=== PATIENT | female | born 1960 | race African-American/Black ===

== ENCOUNTER 2016-12-27 05:39 | Day surgery (SDC) | payer OTHER ==
[2016-12-24 09:54] VITALS: BMI 34.9
--- NOTE | 2016-12-26 23:17 | PREOPHP ---
DATE OF ADMISSION: 12/27/2016 This patient is coming for a procedure on 12/27/2016. HISTORY OF PRESENT ILLNESS: This is a 56-year-old female, 2, para 1. This patient had seen me due to an abnormal Pap smear that has continuously been abnormal, with the need for a colposcopy. The last Pap smear showed ASCUS, atypical squamous cells of undetermined origin and HPV-positive. This patient had been scheduled for a D and C due to endometrial hyperplasia. This patient has suffered from diabetes and hypertension. She has been uncontrolled. The fact that the ultrasound showed endometrial hyperplasia is advising me to perform a D and C. The endometrium was with no endometrial fluid. Both ovaries were not seen due to gas, and the uterus was heterogeneous, with no measurable fibroids. She also had a mild infiltration of the liver with fat. She was diagnosed with an endometrial polyp, and for this reason, she is undergoing a D and C and LEEP conization. This patient has a history of being afraid of procedures, and a LEEP conization is going to be performed since the need of a D and C was present, due to postmenopausal bleeding and severe cervical inflammation. PAST MEDICAL HISTORY: For tubal ligation, history of asthma, diabetes, uncontrolled hypertension. ALLERGIES: SHE IS ALLERGIC TO CODEINE. SHE HAS NO OTHER PERTINENT HISTORY. MEDICATIONS: She is on: 1. Ibuprofen. 2. High blood pressure medication. 3. Dulera. 4. Albuterol. 5. Hydrochlorothiazide. 6. Atorvastatin. 7. Ventolin. 8. Sertraline. 9. . 10. Fluticasone. The patient also has been diagnosed as being bipolar. PHYSICAL EXAMINATION: VITAL SIGNS: She weighs 214. She is 5 feet, 5 inches. Blood pressure is 120/80, pulse is 80. HEAD/NECK: Normal. BREASTS: Soft, nontender, no masses. CHEST: Clear. HEART: Normal sinus rhythm. LUNGS: Normal. ABDOMEN: Soft, nontender, no masses. GENITALIA: Normal external genitalia. Cervix with cervicitis. Uterus normal size, mobile. Adnexa negative. RECTAL EXAMINATION: Normal. EXTREMITIES: Normal. DIAGNOSES: 1. Atypical squamous cells of undetermined significance, nonsatisfactory colposcopy, due to severe inflammation and due to scar tissue on the cervix, with poor visualization of the transformation zone. She is undergoing a LEEP conization and a dilatation and curettage. 2. She also has diagnoses of diabetes, hypertension, asthma, chronic smoking and bipolar disease. PLAN: She has been advised of the possible risks and possible complications of the procedure with her alternatives and options. Written information was provided. She had no more questions and agreed to go ahead with the procedure, with full understanding and no more questions, the procedure to be D and C and LEEP conization. Dictated By: Mary Madison MD /philipp/deepak /Document#: [id number]
[~2016-12-27] VITALS: Ht 165.1 cm; Wt 93.2 kg
[2016-12-27] VITALS (12 sets, daily range): BP systolic 109–165; BP diastolic 70–105; PULSE 70–88; RESP 15–28; Ht 165.1 cm; Wt 93.2 kg
[~2016-12-27 05:39] MED LIST: AMLO-147 PO; ATOR40TA68 PO; ERGO500014 PO; FLUT16SP17 NASAL; HYDR12.58 PO; LOSA25TA5 PO; NICO1PAT6 TD; PANT40TA3 PO; SYMB80120 INHALATION
[2016-12-27] MEDS ORDERED: CEFAZOLIN 2 GM/50 ML (PMX) 50 ML IVPB ONE (06:00)
[2016-12-27] MEDS ORDERED: [UNRECOGNIZED DRUG - OTHER] PO (06:52)
[2016-12-27] MEDS ORDERED: LURA60TA PO (06:52)
[2016-12-27] MEDS ORDERED: MOME13HF INHALATION (06:52)
[2016-12-27] MEDS ORDERED: ALBU2.5V3 NEB (06:52)
[2016-12-27] MEDS ORDERED: ALBU18HF INHALATION (06:52)
[2016-12-27] MEDS ORDERED: STRONG IODINE 14 ML SOLUTION TOP ONE (07:26)
[2016-12-27] MEDS ORDERED: LIDOCAINE 2% (SDV) 5 ML INJ ONE (07:54)
[2016-12-27] MEDS ORDERED: PROPOFOL 20 ML ONE (07:54)
[2016-12-27] MEDS ORDERED: FAMOTIDINE 20 MG INJ ONE (07:55)
[2016-12-27] MEDS ORDERED: ONDANSETRON 4 MG INJ ONE ×2 (07:55→09:06)
[2016-12-27] MEDS ORDERED: MIDAZOLAM 1 MG/ML 2 ML INJ ONE (07:55)
[2016-12-27] MEDS ORDERED: FENTAnyl 50 MCG/ML VIAL ONE (07:57)
[2016-12-27] MEDS ORDERED: CEFAZOLIN 1 GM INJ ONE (08:14)
--- NOTE | 2016-12-27 08:44 | HPN ---
Date/Time of Note Date/Time of Note DATE: 12/27/16 TIME: 08:43 Interval H&P Admission Note Pt. seen H&P reviewed: No system changes ERVIN SKAGGS MD Dec 27, 2016 08:44
--- NOTE | 2016-12-27 08:45 | PD.PPDC ---
OCEANIC SCIENCES PROFESSOR Discharge Instruction Condition Patient Condition: Good Diet Diet: Resume Regular Diet Activity/Restrictions Activity: Normal Activity May Shower Restrictions: No Exercising No Lifting No Driving No Sexual Activity Nothing in the Vagina No [place] No Tampons, douche Follow-up Follow-up with Physician: 2, Week/Weeks Return to clinic for REHABILITATION COUNSELLOR Instructions: Fever greater than 101 Chills Worsening abdominal pain Excessive Vaginal Bleeding More than 2 pads per hour Unable to tolerate diet ERVIN SKAGGS MD Dec 27, 2016 08:45
--- NOTE | 2016-12-27 08:52 | OPR ---
Date/Time of Note Date/Time of Note DATE: 12/27/16 TIME: 08:48 Operative Report Procedure Date: Dec 27, 2016 Preoperative Diagnosis ASCUS ABNORMAL PAP SMEAR NON SATISFACTORY COLPOSCOPY DIABETES HTN ASTHMA POSTMENOPAUSAL BLEEDING Postoperative Diagnosis SAME Operation Performed CERVICAL LEEP PROCEDURE FRACTIONAL D&C Surgeon: ERVIN SKAGGS MD Anesthesia Type: general Anesthesiologist: TATYANA MAGDALENO MD Estimated Blood Loss: none Transfusion Required: no Specimens ENDOMETRIAL CONTENTS CERVICAL ECTO AND ENDOCERVICAL BIOPSIES Grafts/Implants: none Complications: no Pt Condition Post Procedure: stable Disposition: PACU ERVIN SKGAGS MD Dec 27, 2016 08:52
[2016-12-27] MEDS ORDERED: OXYCODONE/ACETAMINOPHEN (5/325) TAB PO PRN ×2 (09:00)
[2016-12-27] MEDS ORDERED: MEPERIDINE 25 MG INJ IV PRN (09:00)
[2016-12-27] MEDS ORDERED: DIPHENHYDRAMINE 50 MG INJ IV PRN (09:00)
[2016-12-27] MEDS ORDERED: PROCHLORPERAZINE 10 MG INJ IV PRN (09:00)
[2016-12-27] MEDS ORDERED: hydrALAzine 20 MG INJ IV PRN (09:00)
[2016-12-27] MEDS ORDERED: LABETALOL HCL 20MG INJ IV PRN (09:00)
[2016-12-27] MEDS ORDERED: KETOROLAC 30 MG INJ IV PRN (09:00)
[2016-12-27] MEDS ORDERED: ONDANSETRON 4 MG INJ IV PRN (09:00)
[2016-12-27] MEDS ORDERED: HYDROmorphONE (0.2 MG/ML) 10ML SYG IV PRN (09:00)
[2016-12-27] MEDS ORDERED: MEPERIDINE 25 MG INJ ONE (09:06)
[2016-12-27] MEDS: FENTAnyl 50 MCG/ML VIAL IV PRN ×2 (09:18→09:23)
--- NOTE | 2016-12-27 15:39 | OPR ---
DATE OF OPERATION: 12/27/2016 PROCEDURE: Fractional D and C, and LEEP conization of the cervix. PREOPERATIVE DIAGNOSES: 1. Nonsatisfactory colposcopy, atypical squamous cells of undetermined significance, human papilloma virus positive. 2. Diabetes. 3. Hypertension. 4. Asthma. 5. Postmenopausal bleeding. POSTOPERATIVE DIAGNOSES: 1. Nonsatisfactory colposcopy, atypical squamous cells of undetermined significance, human papilloma virus positive. 2. Diabetes. 3. Hypertension. 4. Asthma. 5. Postmenopausal bleeding. SURGEON: Mary Madison MD ANESTHESIA: Dr. with general anesthesia. OPERATIVE PROCEDURE: The patient was given general anesthesia, placed in the lithotomy position. The perineal area was prepped and draped, and the vaginal speculum was placed. Examination under anesthesia revealed that the uterus was small, normal size. There was marked prolapse of the uterus through the cervix, to be very close to the introitus at plus 3 station. The bladder was also protruding down with a prolapse of the bladder to a grade 3. The vaginal speculum was applied. Lugol solution was applied on the cervix and ectocervix, and endocervical conization was done with a large and small electrical loop, and the hemostasis was perfect. At this time, there has been an ECC done previously, and an EMC was provided by scraping the layers of the uterus anteriorly, posteriorly and laterally and in the fundus. The patient tolerated the procedure well, and left the OR awake and stable. Sponge counts and instrument counts were correct. Intravenous antibiotics were given for prophylaxis. Dictated By: Mary Madison MD /fnt/ec /Document#: [id number]
== END 2016-12-27 10:28 | disposition home or self-care (01) ==
LOC: SDS 05:39
PROVIDERS: ATTEND Obstetrics & Gynecology
DX: N88.8 Other specified noninflammatory disorders of cervix uteri (principal); N71.9 Inflammatory disease of uterus, unspecified; E11.9 Type 2 diabetes mellitus without complications; I10 Essential (primary) hypertension; J45.909 Unspecified asthma, uncomplicated
CPT/HCPCS: 57522; 82962; 88305; J0690; J2175; J2250; J2405; J3010; Z7512; Z7610

== ENCOUNTER 2017-02-28 05:56 | Inpatient (IN) | payer OTHER ==
[2017-02-25 10:38] VITALS: Ht 165.1 cm; Wt 95.5 kg
[~2017-02-28] VITALS: Ht 165.1 cm; Wt 95.5 kg
[2017-02-28] VITALS (13 sets, daily range): BP systolic 98–131; BP diastolic 54–83; PULSE 60–92; RESP 14–44
[~2017-02-28 05:56] MED LIST changes: +ALBU18HF INHALATION; +ALBU2.5V3 NEB; -ERGO500014 PO; +LURA60TA PO; +MOME13HF INHALATION; -NICO1PAT6 TD; -PANT40TA3 PO; -SYMB80120 INHALATION; +[UNRECOGNIZED DRUG - OTHER] PO
[2017-02-28] MEDS ORDERED: BUPIVACAINE 0.5%/EPI (SDV) 30 ML INJ ONE (07:00)
[2017-02-28] MEDS ORDERED: CEFAZOLIN 2 GM/50 ML (PMX) 50 ML IVPB ONE (07:00)
[2017-02-28] MEDS ORDERED: ETOMIDATE 20 MG INJ ONE (07:00)
[2017-02-28] MEDS ORDERED: THROMBIN 5000 UNIT VIAL ONE (07:00)
[2017-02-28] MEDS ORDERED: DEXTROSE 5%-LR 1,000 ML IV ONE (07:00)
--- NOTE | 2017-02-28 07:00 | PREOPHP ---
DATE OF ADMISSION: 02/28/2017 HISTORY OF PRESENT ILLNESS: This is a 56-year-old female, 2, para 1. Patient had been seen by me this year due to different problems. She has been my patient since a year ago. She has been treated for hypertension, asthma, diabetes, bipolar disease and recently heavy bleeding from the ut erus, even though she had a recent D and C and LEEP conization that revealed that there was no malig greer involved, only endometrial hyperplasia with complex endometrium. This patient has been dealin g with abnormal Pap smear recently, and with bleeding recently that had been intractable with a D an d C. The patient would like to have this problem resolved, complex endometrial hyperplasia, had bee n diagnosed with diabetes and obesity that adds to the possibility of an endometrial cancer risk. F or this reason, the patient has been advised for a vaginal total hysterectomy, possible LUZ. The pa tient will keep her ovaries unless they are with endometriosis or having any problems due to the fac t that she is still enjoying her wellbeing with the ovaries, being advised by the [employer] t o remove them after 65 years of age and not before unless they have a problem. PAST MEDICAL HISTORY: She had a tubal ligation, asthma, diabetes, uncontrolled hypertension. ALLERGIES: CODEINE. MEDICATIONS: She is on: 1. Ibuprofen. 2. High blood pressure medication. 3. Dulera. 4. Albuterol. 5. Hydrochlorothiazide. 6. Atorvastatin. 7. Ventolin. 8. Sertraline. 9. Fluticasone. FAMILY HISTORY: For hypertension and diabetes. SHE IS ALLERGIC TO CODEINE and she had a tubal ligation in 1980. PHYSICAL EXAMINATION: GENERAL APPEARANCE: Good. VITAL SIGNS: She weighs 209. She is 5 feet 5 inches. She is afebrile, pulse is 80, respirations 1 6, blood pressure 120/80 right now. HEAD AND NECK: Normal. BREASTS: Soft, nontender, no masses. CHEST: Clear. HEART: Normal sinus rhythm. LUNGS: Clear. ABDOMEN: Soft, nontender, no masses. GENITALIA: With normal external genitalia. Cervix with some cervicitis. Uterus normal size, mobil e, nonprolapsed. Adnexa are negative. EXTREMITIES: Normal. DIAGNOSES: 1. Complex endometrial hyperplasia. 2. Abnormal uterine bleeding. 3. Postmenopausal pelvic pain. 4. Diabetes. 5. Obesity. 6. Chronic smoker. 7. Bipolar. 8. Asthma. PLAN: She is undergoing a vaginal hysterectomy, possible LUZ, possible BSO. She has been advised o f the possible risks and possible complications of the procedure with her alternatives and options. Written information was provided. She had no more questions and agreed to go ahead with the proced ure, with full understanding and no more questions. Dictated By: ERVIN MONAHAN/NAZANIN Conf#: [id number] DID#: [id number]
[2017-02-28] MEDS ORDERED: BENZ1TAB7 PO (07:04)
[2017-02-28] MEDS ORDERED: TRAZ100T15 PO (07:04)
[2017-02-28] MEDS ORDERED: CHOL100062 PO (07:04)
[2017-02-28] MEDS ORDERED: ROCURONIUM 50 MG INJ ONE (07:44)
[2017-02-28] MEDS ORDERED: PROPOFOL 20 ML ONE (07:44)
[2017-02-28] MEDS ORDERED: NEOSTIGMINE 3 MG/3 ML SYRINGE ONE (07:44)
[2017-02-28] MEDS ORDERED: GLYCOPYRROLATE 0.4 MG INJ ONE (07:44)
[2017-02-28] MEDS ORDERED: CEFAZOLIN 1 GM INJ ONE (07:44)
[2017-02-28] MEDS ORDERED: FENTAnyl 50 MCG/ML VIAL ONE (07:45)
[2017-02-28] MEDS ORDERED: ONDANSETRON 4 MG INJ ONE ×2 (07:45→09:59)
[2017-02-28] MEDS ORDERED: morphine SULFATE/PF (10 MG/10 ML) INJ ONE (07:45)
[2017-02-28] MEDS ORDERED: MIDAZOLAM 1 MG/ML 2 ML INJ ONE (07:45)
[2017-02-28] MEDS ORDERED: DEXAMETHASONE 4 MG/ML 1 ML INJ ONE (07:45)
[2017-02-28] MEDS ORDERED: EPHEDrine SULFATE 50 MG/5 ML SYG IV PRN (09:00)
[2017-02-28] MEDS ORDERED: MIDAZOLAM 1 MG/ML 2 ML INJ IV PRN (09:00)
[2017-02-28] MEDS ORDERED: DIPHENHYDRAMINE 50 MG INJ IV PRN (09:00)
[2017-02-28] MEDS ORDERED: OXYCODONE/ACETAMINOPHEN (5/325) TAB PO PRN ×2 (09:00)
[2017-02-28] MEDS ORDERED: IPRATROPIUM (NEB) 0.5 MG/2.5 ML AMP HHN PRN (09:00)
[2017-02-28] MEDS ORDERED: NALBUPHINE HCL (10 MG/1 ML) INJ IV PRN (09:00)
[2017-02-28] MEDS ORDERED: TRIMETHOBENZAMIDE 100 MG/ML VIAL IM PRN ×3 (09:00→10:30)
[2017-02-28] MEDS ORDERED: LABETALOL HCL 20MG INJ IV PRN (09:00)
[2017-02-28] MEDS ORDERED: morphine 4 MG/ML VIAL IV PRN (09:00)
[2017-02-28] MEDS ORDERED: ONDANSETRON 4 MG INJ IV PRN ×2 (09:00)
[2017-02-28] MEDS ORDERED: ALBUTEROL 0.083% (NEB) 2.5 MG/3 ML AMP HHN PRN (09:00)
[2017-02-28] MEDS ORDERED: HYDROmorphONE (0.2 MG/ML) 10ML SYG IV PRN ×3 (09:00)
[2017-02-28] MEDS ORDERED: FENTAnyl 50 MCG/ML VIAL IV PRN ×3 (09:00)
[2017-02-28] MEDS ORDERED: KETOROLAC 30 MG INJ IV PRN ×2 (09:00→10:00)
[2017-02-28] MEDS ORDERED: hydrALAzine 20 MG INJ IV PRN (09:00)
[2017-02-28] MEDS ORDERED: NALOXONE (0.4 MG/ML) INJ IV PRN (09:00)
[2017-02-28] MEDS ORDERED: morphine 2 MG INJ IV PRN (09:00)
[2017-02-28] MEDS ORDERED: SUGAMMADEX SODIUM 200 MG/2 ML VIAL IV ONE (09:14)
[2017-02-28] MEDS: LACTATED RINGER'S 1,000 ML IV SCH ×3 (09:37→22:29)
--- NOTE | 2017-02-28 09:49 | SIPON ---
Date/Time of Note Date/Time of Note DATE: 02/28/17 TIME: 09:46 Operative Report Preoperative Diagnosis complex endometrial hyperplasia diabetes hypertension obesity asthma Postoperative Diagnosis same Operation/Procedure Performed vaginal hysterectomy Surgeon see signature line leasing assistant Silvia Anesthesia: general Estimated blood loss: 10 - 50 ml's Transfusion Required none Specimen uterus Grafts/Implants none Complications none ERVIN SKAGGS MD Feb 28, 2017 09:49
--- NOTE | 2017-02-28 09:49 | SIPON ---
Date/Time of Note Date/Time of Note DATE: 02/28/17 TIME: 09:46 Operative Report Preoperative Diagnosis complex endometrial hyperplasia diabetes hypertension obesity asthma Postoperative Diagnosis same Operation/Procedure Performed vaginal hysterectomy Surgeon see signature line phlebotomy lab assistant Silvia Anesthesia: general Estimated blood loss: 10 - 50 ml's Transfusion Required none Specimen uterus Grafts/Implants none Complications none ERVIN SKAGGS MD Feb 28, 2017 09:49
[2017-02-28] MEDS ORDERED: ALBUTEROL HFA 8 GM INHALER INH SCH (10:00)
[2017-02-28] MEDS ORDERED: ALBUTEROL 0.083% (NEB) 2.5 MG/3 ML AMP NEB SCH (10:00)
[2017-02-28] MEDS ORDERED: ZOLPIDEM 5 MG TAB PO PRN (10:00)
[2017-02-28] MEDS ORDERED: PROVENTIL HFA 6.7GM INHALER INH SCH (10:00)
[2017-02-28] MEDS ORDERED: BISACODYL (EC) 5 MG TAB PO PRN (10:00)
[2017-02-28] MEDS ORDERED: BENZTROPINE 1 MG TAB PO PRN ×2 (10:00)
[2017-02-28] MEDS ORDERED: HYDROCODONE/APAP (5/325) TAB PO PRN (10:00)
[2017-02-28] MEDS ORDERED: DIPHENHYDRAMINE 50 MG CAP PO PRN (10:00)
[2017-02-28] MEDS ORDERED: METOCLOPRAMIDE 10 MG INJ ONE (10:01)
[2017-02-28] MEDS: ALBUTEROL 0.083% (NEB) 2.5 MG/3 ML AMP NEB SCH ×4 (10:12→20:54)
[2017-02-28] MEDS ORDERED: MEPERIDINE 25 MG INJ ONE (10:14)
[2017-02-28] MEDS: DIPHENHYDRAMINE 50 MG INJ IV PRN ×2 (10:20→22:25)
[2017-02-28] MEDS: MEPERIDINE 25 MG INJ IV PRN ×2 (10:20→12:45)
[2017-02-28] MEDS ORDERED: METOCLOPRAMIDE 10 MG INJ IV PRN (10:30)
[2017-02-28] MEDS ORDERED: MEPERIDINE 25 MG INJ IV PRN (10:30)
[2017-02-28] MEDS: KETOROLAC 30 MG INJ IV SCH ×3 (11:00→22:26)
--- NOTE | 2017-02-28 11:19 | OPR ---
DATE OF OPERATION: 02/28/2017 PROCEDURE: Vaginal total hysterectomy. PREOPERATIVE DIAGNOSES: Complex endometrial hyperplasia, diabetes, obesity, asthma, hypertension. POSTOPERATIVE DIAGNOSIS: Endometrial hyperplasia, diabetes, obesity, asthma, hypertension. SURGEON: Dr. Madison JOINT TERMINAL ATTACK CONTROLLER: Dr. Vega ANESTHESIA: General. DESCRIPTION OF PROCEDURE: The patient was given general anesthesia, placed in the lithotomy positio n. The perineal and vaginal area were prepped and draped, and the examination under anesthesia reve aled that there was marked relaxation of the bladder and rectum with a known prolapsed uterus. The patient had a previous section with 1 child that she had. The uterus was normal size. Adn exa were nonpalpable. The vaginal speculum was applied. The cervix was held with the Hussain clamp a nd an injection of Xylocaine and epinephrine was given around the cervicovaginal junction. An incis ion was done at the cervicovaginal junction at the round area and anterior cul-de-sac was found and the posterior cul-de-sac was found. The cardinal ligaments and uterosacral ligaments, the uterine v essels were burned with bipolar instrument LigaSure under 3 green levels. At this time, the uterus was cut after inverting the uterus and clamping the ovarian ligament and tu be in both sides. The adnexal pedicles were tied with double sutures with #1 Vicryl and these sutur es were held. The cardinal ligaments were sutured and also these stitches were held. The visualiza tion of the tubes and ovaries were not seen. The ovary was not even palpated very high up in the pe lvis and also the tubes were at the same time not even approaching the cavity. At this time, a purs estring suture was done around the peritoneum and the cavity was closed. The adnexal pedicles and c ardinal ligament pedicles were tied to ipsilateral side and the stitches were brought up to the ante rior and posterior area of the vaginal cuff. The lifting of the vaginal cuff was observed, after ty ing the adnexal pedicle, the vagina was closed vertically with interrupted sutures with #1 Vicryl. Hemostasis was good. Blood loss was minimal. The urine was clear at the end of the procedure, a Fo paty catheter was applied and also a Xeroform gauze was left in the vagina as a dressing. The patien t tolerated the procedure well and left the OR awake and stable. Sponge counts, instrument counts, needle counts again were correct. Intravenous antibiotics were given for prophylaxis. Blood loss w as minimal. Dictated By: ERVIN MONAHAN/NAZANIN Conf#: [id number] DID#: [id number]
[2017-02-28] MEDS: METOCLOPRAMIDE 10 MG TAB PO SCH ×2 (12:59→18:22)
[2017-02-28] MEDS ORDERED: NON-FORMULARY/PATIENT OWN MED (Mometasone-Formoterol (Dulera) 2 PUFFS) INHALATION SCH (13:00)
[2017-02-28] MEDS: CEFAZOLIN 1 GM/50 ML (PMX) 50 ML IVPB SCH ×2 (13:41→22:27)
[2017-02-28] MEDS: ALBUTEROL HFA 8 GM INHALER INH SCH (18:23)
[2017-02-28] MEDS: ATORVASTATIN 40 MG TAB PO SCH (20:12)
[2017-02-28] MEDS: SALMETEROL/FLUTICASONE 250/50 INHA INH SCH (20:12)
[2017-02-28] MEDS ORDERED: ATORVASTATIN 40 MG TAB PO SCH (21:00)
[2017-02-28] MEDS: HYDROCHLOROTHIAZIDE 12.5 MG CAP PO SCH (21:00)
[2017-02-28] MEDS: traZODone 100 MG TAB PO SCH (21:00)
[2017-03-01] MEDS: METOCLOPRAMIDE 10 MG TAB PO SCH ×4 (00:19→17:28)
[2017-03-01] MEDS: ALBUTEROL 0.083% (NEB) 2.5 MG/3 ML AMP NEB SCH ×6 (01:00→20:37)
[2017-03-01] MEDS: LACTATED RINGER'S 1,000 ML IV SCH (01:37)
[2017-03-01 02:06] VITALS: BP 115/60; RESP 20
[2017-03-01] MEDS: KETOROLAC 30 MG INJ IV SCH ×3 (04:42→17:27)
[2017-03-01] MEDS: ALBUTEROL HFA 8 GM INHALER INH SCH ×4 (05:37→17:28)
[2017-03-01] MEDS: CEFAZOLIN 1 GM/50 ML (PMX) 50 ML IVPB SCH (05:39)
[2017-03-01 08:20] VITALS: BP 105/64; RESP 16
[2017-03-01] MEDS ORDERED: NON-FORMULARY/PATIENT OWN MED (Lurasidone Hcl (Latuda) 60 MG) PO SCH (09:00)
[2017-03-01] MEDS ORDERED: NON-FORMULARY/PATIENT OWN MED (Lurasidone Hcl (Latuda) 60 MG) XX SCH (09:00)
[2017-03-01] MEDS ORDERED: CHOLECALCIFEROL 1,000 UNIT TAB PO SCH (09:00)
[2017-03-01] MEDS ORDERED: AMLODIPINE 10 MG TAB PO SCH (09:00)
[2017-03-01] MEDS ORDERED: FLUTICASONE 0.05% 16 GM NAS SPRAY NASAL SCH (09:00)
[2017-03-01] MEDS: LOSARTAN 25 MG TAB PO SCH (10:04)
[2017-03-01] MEDS: SALMETEROL/FLUTICASONE 250/50 INHA INH SCH ×2 (10:04→21:29)
[2017-03-01] MEDS: HYDROCHLOROTHIAZIDE 12.5 MG CAP PO SCH ×2 (10:05→21:29)
[2017-03-01] MEDS: CHOLECALCIFEROL 1,000 UNIT TAB PO SCH (10:07)
[2017-03-01] MEDS: FLUTICASONE 0.05% 16 GM NAS SPRAY NASAL SCH (10:08)
--- NOTE | 2017-03-01 10:52 | PN ---
Date/Time of Note Date/Time of Note DATE: 03/01/17 TIME: 10:50 Assessment/Plan Lines/Catheters IV Catheter Type (from Nrsg): Peripheral IV Alejandro in Place (from Nrsg): Yes Subjective 24 Hr Interval Summary FEELS GOOD, VAGINAL DRESSING REMOVED DRY. ENCOURAGED AMBULATION NOT IN PAIN OPERATION PROCEDURE EXPLAINED PATIENT IS GRATEFUL Constitutional: BM, ambulates, flatus, improved, no complaints, urine output Feeding: advancing diet Pain Control: well controlled Exam/Review of Systems Vital Signs Vitals Vital Signs Date Time Temp Pulse Resp B/P Pulse Ox O2 Delivery O2 Flow Rate FiO2 03/01/17 08:42 68 16 99 21 03/01/17 08:20 97.7 105/64 03/01/17 06:22 2.0 02/28/17 20:55 Nasal Cannula Intake and Output 02/28/17 02/28/17 03/01/17 15:00 23:00 07:00 Intake Total 3050 ml 2080 ml 2330 ml Output Total 175 ml 1000 ml 2300 ml Balance 2875 ml 1080 ml 30 ml Exam Constitutional: alert, oriented, well developed Psych: nl mood/affect, no complaints Head: atraumatic, normocephalic Eyes: EOMI, nl conjunctiva, nl lids, nl sclera ENMT: mucosa pink and moist, nl external ears & nose, nl lips & teeth, nl nasal mucosa & septum Neck: non-tender, supple Respiratory: clear to auscultation, normal air movement Cardiovascular: nl pulses, regular rate and rhythm Gastrointestinal: nl liver, spleen, non-tender, soft Musculoskeletal: nl extremities to inspection, nl gait and stance Extremities: normal pulses Neurological: SUPERVISOR COMPRESSED YEAST II-XII intact, nl mental status, nl speech, nl strength Skin: nl turgor, rash or lesions Lymph: nl lymph nodes Results Result Diagram: 03/01/1751703/01/17517 ERVIN SKAGGS MD Mar 01, 2017 10:52
[2017-03-01] MEDS: AMLODIPINE 10 MG TAB PO SCH (11:21)
[2017-03-01 15:05] VITALS: BP 110/57; RESP 20
[2017-03-01 19:39] VITALS: BP 118/65; RESP 20
[2017-03-01] MEDS: traZODone 100 MG TAB PO SCH (21:00)
[2017-03-01] MEDS: ATORVASTATIN 40 MG TAB PO SCH (21:28)
[2017-03-02] MEDS: METOCLOPRAMIDE 10 MG TAB PO SCH ×2 (00:19→06:25)
[2017-03-02] MEDS: ALBUTEROL HFA 8 GM INHALER INH SCH ×2 (00:20→06:25)
[2017-03-02] MEDS: ALBUTEROL 0.083% (NEB) 2.5 MG/3 ML AMP NEB SCH ×3 (00:55→08:45)
[2017-03-02 02:00] VITALS: BP 130/68; RESP 20
[2017-03-02 07:36] VITALS: BP 121/69; RESP 16
[2017-03-02] MEDS ORDERED: INFLUENZA VIRUS VACCINE 0.5 ML (DISPENSING) IM* ONE (09:00)
[2017-03-02] MEDS: SALMETEROL/FLUTICASONE 250/50 INHA INH SCH (09:24)
[2017-03-02] MEDS: CHOLECALCIFEROL 1,000 UNIT TAB PO SCH (09:25)
[2017-03-02] MEDS: FLUTICASONE 0.05% 16 GM NAS SPRAY NASAL SCH (09:25)
[2017-03-02] MEDS: HYDROCHLOROTHIAZIDE 12.5 MG CAP PO SCH (09:26)
[2017-03-02] MEDS: AMLODIPINE 10 MG TAB PO SCH (09:26)
[2017-03-02] MEDS: LOSARTAN 25 MG TAB PO SCH (09:27)
--- NOTE | 2017-03-02 10:34 | PD.PPDC ---
SOLAR ENERGY SYSTEMS DESIGNER Discharge Instruction Condition Patient Condition: Good Diet Diet: Resume Regular Diet Activity/Restrictions Activity: Normal Activity May Shower Restrictions: No Exercising No Lifting No Driving No Sexual Activity Nothing in the Vagina No [place] No Tampons, douche Follow-up Follow-up with Physician: 2, Week/Weeks Return to clinic for SHADE CUTTER Instructions: Fever greater than 101 Chills Worsening abdominal pain Excessive Vaginal Bleeding More than 2 pads per hour Unable to tolerate diet ERVIN SKAGGS MD Mar 02, 2017 10:34
--- NOTE | 2017-03-02 10:34 | PD.PPDC ---
CHLORINE CELLS OPERATOR Discharge Instruction Condition Patient Condition: Good Diet Diet: Resume Regular Diet Activity/Restrictions Activity: Normal Activity May Shower Restrictions: No Exercising No Lifting No Driving No Sexual Activity Nothing in the Vagina No [place] No Tampons, douche Follow-up Follow-up with Physician: 2, Week/Weeks Return to clinic for JUTE BAG CLIPPER Instructions: Fever greater than 101 Chills Worsening abdominal pain Excessive Vaginal Bleeding More than 2 pads per hour Unable to tolerate diet ERVIN SKAGGS MD Mar 02, 2017 10:34
--- NOTE | 2017-03-03 05:26 | DS ---
DATE OF ADMISSION: 02/28/2017 DATE OF DISCHARGE: 03/02/2017 HISTORY: This is a 56-year-old female, 2, para 1. The patient has seen me for hypertension , asthma, diabetes, bipolar. She had recently been bleeding. She had a recent D and C and a LEEP c onization that revealed that there was no malignancy involved, but there was some endometrial hyperp lasia with complex endometrium. This patient was advised for a hysterectomy since she was having an abnormal Pap smears as well and to determine that if the endometrial hyperplasia would be hiding po ssibility of an endometrial cancer. For this reason, she was advised for a vaginal hysterectomy, po ssible LUZ. She was placed in the surgical department and she had a vaginal hysterectomy. Both ova indio were nonpalpable. She had a tubal ligation in 1980. We did not feel for the tubes or we did n ot see the tubes and we did not feel the ovaries as well while doing a vaginal hysterectomy. The pa tient is with hypertension and diabetes and obesity. For this reason, this route was chosen. She d id very well after surgery. She had normal laboratory testing with mild anemia that was non-symptom atic to the patient. She was afebrile. She was ambulatory. The second postoperative day was dona ating diet and with bowel movement and no active bleeding, feeling very well and ambulatory and aski ng to go home. The patient's pathology report came up with the possibility of endometrioid carcinom a and the specimen was sent to for a second opinion. The patient was doing well and she is di scharged home on her second postoperative day on ibuprofen and Vicodin p.r.n. She was supposed to s ee me in the office in a week and she was advised that we need to wait for pathology results to see if we need to make a consultation for oncology. The patient is stable and in good condition to go h ome with normal blood sugar level and normal chemistry. Further instructions were given for how to take care of herself and she was advised to see me in the office if she had any problems or see me i n a week for followup. Dictated By: ERVIN MONAHAN/NAZANIN Conf#: [id number] DID#: [id number]
== END 2017-03-02 11:20 | disposition home or self-care (01) | DRG 743 ==
LOC: REC 05:56 → MS2 10:25
PROVIDERS: ADMIT Obstetrics & Gynecology; ATTEND Obstetrics & Gynecology
PROC: 0UT97ZZ Resection of Uterus, Via Natural or Artificial Opening (ICD-10-PCS; principal; 2017-02-28 07:30)
DX: N85.01 Benign endometrial hyperplasia (principal); E66.9 Obesity, unspecified; I10 Essential (primary) hypertension; E11.9 Type 2 diabetes mellitus without complications; Z68.35 Body mass index [BMI] 35.0-35.9, adult; N93.9 Abnormal uterine and vaginal bleeding, unspecified; R10.2 Pelvic and perineal pain; Z72.0 Tobacco use; F31.9 Bipolar disorder, unspecified; J45.909 Unspecified asthma, uncomplicated
CPT/HCPCS: 80051; 82565; 82962; 84520; 85025; 86850; 86900; 86901; 86920; 87086; 88305; 88307; 94640; 94664; J0690; J1100; J1200; J1885; J2175; J2250; J2274; J2405; J2710; J2765; J3010; J7120; J7121